=== PATIENT | male | born 1935 | race African-American/Black ===

== ENCOUNTER 2017-04-19 14:31 | Emergency (ER) | payer OTHER ==
[2017-04-19 14:40] VITALS: BMI 30.1
--- NOTE | 2017-04-19 15:17 | PDOC ---
History of Present Illness - General History Source: Patient - History of Present Illness Timing/Duration: reports: constant <Evelia Saucedo - Last Filed: 04/19/17 18:59> <Murtaza Grier - Last Filed: 04/19/17 21:10> - General Chief Complaint: Pain Stated Complaint: PAIN Time Seen by Provider: 04/19/17 14:59 Past History - Past Medical History Cancer: Yes (PROSTATE 2010) HTN: Yes Hypercholesterolemia: Yes - Immunization History Immunization Up to Date: Yes - Suicide/Smoking/Psychosocial Hx Smoking Status: Yes Smoking History: Never smoked Have you smoked in the past 12 months: No Number of Cigarettes Smoked Daily: 0 Cigars Per Day: 0 Hx Alcohol Use: Yes (SOCIAL) Drug/Substance Use Hx: No Substance Use Type: None Hx Substance Use Treatment: No <Evelia Saucedo - Last Filed: 04/19/17 18:59> <Murtaza Grier - Last Filed: 04/19/17 21:10> - Past Medical History Allergies/Adverse Reactions: Allergies Allergy/AdvReac Type Severity Reaction Status Date / Time No Known Allergies Allergy Verified 04/19/17 14:36 Home Medications: Ambulatory Orders Polyethylene Glycol 3350 [Miralax 255 gm Btl -] 17 gm PO PRN 10/29/12 Acetaminophen [Tylenol .Regular Strength -] 650 mg PO Q4H PRN #0 tablet Omeprazole [Prilosec] 20 mg PO ACBK #30 capsule. 01/18/16 Valsartan/Hydrochlorothiazide [Diovan Hct 160-25 mg Tablet] 1 combo PO DAILY # 30 tablet 01/18/16 Levofloxacin [Levaquin -] 500 mg PO DAILY #10 tablet 04/19/17 Tramadol HCl 50 mg PO Q8H PRN #12 tablet MDD 3 tabs 04/19/17 Review of Systems - Review of Systems Constitutional: No: Chills, Fever, Unintentional Wgt. Loss ABD/GI: No: Constipated, Nausea, Vomiting : Yes: Testicular Pain. No: Burning, Dysuria, Discharge, Flank Pain, Hematuria, Testicular Mass, Testicular Swelling <Evelia Saucedo Last Filed: 04/19/17 18:59> *Physical Exam - Vital Signs Last Vital Signs Temp Pulse Resp BP Pulse Ox 98.4 F 92 H 20 133/69 95 04/19/17 14:31 04/19/17 14:31 04/19/17 14:31 04/19/17 14:31 04/19/17 14:31 - Physical Exam General Appearance: Yes: Appropriately Dressed. No: Apparent Distress HEENT: positive: Normal Voice Neck: positive: Supple Respiratory/Chest: negative: Respiratory Distress Gastrointestinal/Abdominal: positive: Soft. negative: Tender Male Genitalia: positive: epididymus tender. negative: discharge, testicular mass ( ?swelling of L testes compared to right, no overt sign of hernia) Musculoskeletal: negative: CVA Tenderness Extremity: positive: Normal Inspection Integumentary: positive: Dry, Warm Neurologic: positive: Fully Oriented, Alert, Normal Mood/Affect <Evelia Saucedo - Last Filed: 04/19/17 18:59> - Vital Signs Last Vital Signs Temp Pulse Resp BP Pulse Ox 98.6 F 77 18 115/70 95 04/19/17 17:37 04/19/17 17:37 04/19/17 17:37 04/19/17 17:37 04/19/17 17:37 <Murtaza Grier - Last Filed: 04/19/17 21:10> ED Treatment Course - LABORATORY CBC & Chemistry Diagram: 04/19/17 15:05 04/19/17 15:05 - RADIOLOGY Radiology Studies Ordered: Category Date Time Status SCROTUM AND CONTENTS US [US] Stat Ultrasound 04/19/17 15:07 Ordered <Evelia Saucedo - Last Filed: 04/19/17 18:59> - LABORATORY CBC & Chemistry Diagram: 04/19/17 15:05 04/19/17 15:05 - ADDITIONAL ORDERS Additional order review: Laboratory Results 04/19/17 04/19/17 15:05 15:05 Sodium 139 Potassium 4.0 Chloride 100 Carbon Dioxide 32 Anion Gap 7 L BUN 16 Creatinine 1.3 Creat Clearance w eGFR 53.25 Random Glucose 109 H Calcium 9.1 Total Bilirubin 0.5 D AST 13 L D ALT 18 D Alkaline Phosphatase 55 Total Protein 7.2 Albumin 3.8 Urine Color Yellow Urine Appearance Slcloudy Urine pH 5.0 Ur Specific Bucks 1.020 Urine Protein Negative Urine Glucose (UA) Negative Urine Ketones Negative Urine Blood Negative Urine Nitrite Negative Urine Bilirubin Negative Urine Urobilinogen Negative Ur Leukocyte Esterase 1+ H Urine RBC 0-3 Urine WBC 30-50 Ur Epithelial Cells 0-3 Hyaline Casts 1-3 Urine Mucus 1+ 04/19/17 15:05 RBC 5.49 MCV 88.8 MCHC 32.4 RDW 14.8 MPV 8.0 Neutrophils % 67.3 Lymphocytes % 19.8 D Monocytes % 10.0 Eosinophils % 2.0 Basophils % 0.9 - Medications Given in the ED: ED Medications Discontinued Medications Generic Name Dose Route Start Last Admin Trade Name Freq PRN Reason Stop Dose Admin Tramadol HCl 50 mg 04/19/17 19:32 04/19/17 19:40 Ultram - PO 04/19/17 19:33 50 mg ONCE ONE Administration <Murtaza Grier - Last Filed: 04/19/17 21:10> Medical Decision Making - Medical Decision Making 04/19/17 15:08 Any 11-year-old male history of hypertension, diverticulosis, hemorrhoids, GIB, hyperlipidemia, prostate cancer, status post XRT presents to the ER with left testicular pain. Pain developed approximately 2 weeks ago, describes as achy and constant. Was seen by Dr. Michael of urology and after manually examining patient, prescribed him bactrim for "infection" as per patient and also started him on meloxicam. Patient states that he completed mededuardo, M.D., performed an ultrasound and told patient "everything looked fine". Patient states his symptoms had resolved until last night. Denies dysuria, frequency, hematuria, abdominal pain, acute change in bowel movements, nausea, vomiting, fever, chills , or recent unexplained weight loss See exam Recurrent L testicular pain No trauma Dx w/ "infection" 2 weeks ago after being examined by and completed bactrim Had negative US last week per pt Stable and in NAD w/ sig ttp to L testes and to superior pole Epipidydimitis vs hydrocele, unlikely torsion given duration, less likely UTI, no e/o hernia -pain control -labs -ua -US 04/19/17 15:18 04/19/17 18:54 Signed out to MAHIN Grier pending US read and c/s 04/19/17 18:59 <Namibian,Carine-Savita - Last Filed: 04/19/17 18:59> *DC/Admit/Observation/Transfer <Carine Saucedo-Savita - Last Filed: 04/19/17 18:59> - Discharge Dispostion Admit: No <Murtaza Grier - Last Filed: 04/19/17 21:10> Diagnosis at time of Disposition: Epididymitis - Discharge Dispostion Disposition: HOME Condition at time of disposition: Improved - Prescriptions Prescriptions: Levofloxacin [Levaquin -] 500 mg PO DAILY #10 tablet Tramadol HCl 50 mg PO Q8H PRN #12 tablet MDD 3 tabs PRN Reason: Severe Pain - Referrals Referrals: Gato Michael MD [Primary Care Provider] - Erin Michael MD [Staff Physician] - - Patient Instructions Printed Discharge Instructions: DI for Epididymitis Additional Instructions: Follow up with Erin Kwan (Urologist). Call to schedule appointment. Take medications as prescribed. Do not drive, drink alcohol, or operate heavy machinery while taking Tramadol. Return if symptoms worsen or any concerns for further evaluation. Print Language: GEORGIAN
[2017-04-19 15:32] LABS: BASOPHIL 0.9 % (0-2.0); MCH 28.8 pg (25.7-33.7); MCHC 32.4 g/dl (32.0-35.9); MEAN CELL VOLUME 88.8 fl (80-96); NEUTROPHILS 67.3 % (42.8-82.8); PLATELET COUNT 209 K/MM3 (134-434); RDW 14.8 % (11.9-15.9); WHITE BLOOD COUNT 6.4 K/mm3 (4.0-10.0)
[2017-04-19 15:33] LABS: URINE APPEARANCE SLCLOUDY; URINE BILIRUBIN NEGATIVE (NEGATIVE); URINE BLOOD NEGATIVE (NEGATIVE); URINE COLOR YELLOW; URINE GLUCOSE (UA) NEGATIVE (NEGATIVE); URINE KETONE NEGATIVE (NEGATIVE); URINE NITRITE NEGATIVE (NEGATIVE); URINE PROTEIN NEGATIVE (NEGATIVE); URINE UROBILINOGEN NEGATIVE mg/dL (0.2-1.0)
[2017-04-19 16:00] LABS: ALBUMIN 3.8 g/dl (3.4-5.0); ALK PHOS 55 U/L (45-117); ANION GAP 7 (8-16); BILIRUBIN,TOTAL 0.5 mg/dL (0.2-1.0); CALCIUM 9.1 mg/dL (8.5-10.1); CO2 32 mmol/L (21-32); CREATININE 1.3 mg/dL (0.7-1.3); GLUCOSE,RANDOM 109 mg/dL (74-106); SGOT/AST 13 U/L (15-37); SGPT/ALT 18 U/L (12-78); TOT PROT 7.2 g/dl (6.4-8.2)
[2017-04-19 17:55] LABS: URINE LEUK ESTERASE 1+ (NEGATIVE)
[2017-04-19] MEDS ORDERED: traMADol HCL 50 MG TABLET PO ONE (19:32)
[2017-04-19] MEDS ORDERED: traMADol HCL 50 MG TABLET ONE (19:37)
[2017-04-19 19:48] LABS: URINE MUCUS 1+; URINE RBC 0-3 /hpf (0-3); URINE WBC 30-50 (3-5)
[2017-04-19] MEDS ORDERED: LEVOFLOXACIN 500 MG TABLET (FP) PO ONE (21:04)
[2017-04-19 21:07] VITALS: BP 120/68; PULSE 80; TEMP 98.4
[2017-04-19] MEDS ORDERED: LEVOFLOXACIN 500 MG TABLET (FP) ONE (21:18)
== END 2017-04-19 21:25 | disposition home or self-care (01) ==
LOC: JER 14:31
DX: N45.1 Epididymitis (principal); I10 Essential (primary) hypertension; Z85.46 Personal history of malignant neoplasm of prostate
CPT/HCPCS: 36415; 76870-TC; 80053; 81003; 81015; 85025; 87086; 99282-25

== ENCOUNTER 2018-10-10 12:16 | Emergency (ER) | payer OTHER ==
[2018-10-10 12:21] VITALS: BP 127/51; PULSE 86; TEMP 98.2; BMI 30.5
--- NOTE | 2018-10-10 13:13 | PDOC ---
History of Present Illness - General Chief Complaint: Eye Problem Stated Complaint: EYE SWELLING / AGITATION Time Seen by Provider: 10/10/18 12:42 - History of Present Illness Initial Comments: 10/10/18 13:12 82-year-old male with a past medical history for hypertension presents for evaluation of bilateral eye irritation 2 weeks. Seen by ophthalmology placed on an antibiotic eyedrop he has got no relief. He complains of itching and sneezing without systemic symptoms Past History - Past Medical History Allergies/Adverse Reactions: Allergies Allergy/AdvReac Type Severity Reaction Status Date / Time No Known Allergies Allergy Verified 10/10/18 12:22 Home Medications: Ambulatory Orders Polyethylene Glycol 3350 [Miralax 255 gm Btl -] 17 gm PO PRN 10/29/12 Acetaminophen [Tylenol .Regular Strength -] 650 mg PO Q4H PRN #0 tablet Omeprazole [Prilosec] 20 mg PO ACBK #30 capsule. 01/18/16 Valsartan/Hydrochlorothiazide [Diovan Hct 160-25 mg Tablet] 1 combo PO DAILY # 30 tablet 01/18/16 Tramadol HCl 50 mg PO Q8H PRN #12 tablet MDD 3 tabs 04/19/17 levoFLOXacin [Levaquin -] 500 mg PO DAILY #10 tablet 04/19/17 Olopatadine HCl [Pataday] 1 drop OU DAILY #1 bottle 10/10/18 Cancer: Yes (PROSTATE 2010) COPD: No HTN: Yes Hypercholesterolemia: Yes - Immunization History Immunization Up to Date: Yes - Suicide/Smoking/Psychosocial Hx Smoking Status: Yes Smoking History: Never smoked Have you smoked in the past 12 months: No Number of Cigarettes Smoked Daily: 0 Cigars Per Day: 0 Hx Alcohol Use: (occasionally) Drug/Substance Use Hx: No Substance Use Type: None Hx Substance Use Treatment: No Review of Systems - Review of Systems Constitutional: No: Fever HEENTM: Yes: Tearing. No: Eye Pain, Blurred Vision, Recent change in vision, Double Vision, Cataracts *Physical Exam - Vital Signs Last Vital Signs Temp Pulse Resp BP Pulse Ox 98.2 F 86 18 127/51 L 94 L 10/10/18 12:17 10/10/18 12:17 10/10/18 12:17 10/10/18 12:17 10/10/18 12:17 - Physical Exam Comments: 10/10/18 13:12 HEAD: NC/AT EYES: Conjuntiva erythemic. EOMI PERRL MS: Full ROM in all joints without edema NEUROLOGIC: No gross sensory or motor deficits, NVID SKIN: Normal color and temperature no lesions or rashes Medical Decision Making - Medical Decision Making 10/10/18 13:13 ALLERGIC conjunctivitis I will treat him with Pataday eyedrops have him follow- up with ophthalmology on Friday. *DC/Admit/Observation/Transfer Diagnosis at time of Disposition: Allergic conjunctivitis - Discharge Dispostion Disposition: HOME Condition at time of disposition: Stable Decision to Admit order: No - Referrals Referrals: Gato Michael MD [Primary Care Provider] - Tha York MD [Staff Physician] - - Patient Instructions Printed Discharge Instructions: Conjunctivitis, DI for Conjunctivitis Additional Instructions: Return to the emergency room for worsening symptoms. Please follow-up with her director of surgery in 2 days for further evaluation and treatment options without fail. Please use the antihistamine eyedrops as directed one drop each eye daily - Post Discharge Activity
== END 2018-10-10 13:15 | disposition home or self-care (01) ==
LOC: JERFT 12:16
DX: H10.13 Acute atopic conjunctivitis, bilateral (principal); I10 Essential (primary) hypertension; E78.00 Pure hypercholesterolemia, unspecified; Z85.46 Personal history of malignant neoplasm of prostate
CPT/HCPCS: 99281-25

== ENCOUNTER 2019-02-20 14:54 | Inpatient (IN) | payer OTHER ==
--- NOTE | 2019-02-20 16:03 | PDOC ---
History of Present Illness - General Chief Complaint: Respiratory Stated Complaint: DIZZNESS/COUGH Time Seen by Provider: 02/20/19 16:02 Past History - Past Medical History Allergies/Adverse Reactions: Allergies Allergy/AdvReac Type Severity Reaction Status Date / Time No Known Allergies Allergy Verified 02/20/19 15:00 Home Medications: Ambulatory Orders Polyethylene Glycol 3350 [Miralax 255 gm Btl -] 17 gm PO PRN 10/29/12 Acetaminophen [Tylenol .Regular Strength -] 650 mg PO Q4H PRN #0 tablet Omeprazole [Prilosec] 20 mg PO ACBK #30 capsule. 01/18/16 Valsartan/Hydrochlorothiazide [Diovan Hct 160-25 mg Tablet] 1 combo PO DAILY # 30 tablet 01/18/16 Tramadol HCl 50 mg PO Q8H PRN #12 tablet MDD 3 tabs 04/19/17 Olopatadine HCl [Pataday] 1 drop OU DAILY #1 bottle 10/10/18 Cancer: Yes (PROSTATE 2010) COPD: No HTN: Yes Hypercholesterolemia: Yes - Immunization History Immunization Up to Date: Yes - Suicide/Smoking/Psychosocial Hx Smoking Status: Yes Smoking History: Never smoked Have you smoked in the past 12 months: No Number of Cigarettes Smoked Daily: 0 Cigars Per Day: 0 Hx Alcohol Use: (occasionally) Drug/Substance Use Hx: No Substance Use Type: None Hx Substance Use Treatment: No *Physical Exam - Vital Signs Last Vital Signs Temp Pulse Resp BP Pulse Ox 100.0 F H 90 18 132/57 L 94 L 02/20/19 14:58 02/20/19 14:58 02/20/19 14:58 02/20/19 14:58 02/20/19 14:58 ED Treatment Course - LABORATORY CBC & Chemistry Diagram: 02/20/19 17:50 02/20/19 17:50 Medical Decision Making - Medical Decision Making 02/20/19 19:57 83 y/o M with hx HTN, HLD p/w two days of ongoing cough, sore throat, dizziness (now resolved). Borderline temperature 100.0 likely represents true fever if oral temp, initial O2% of 94%. Given age, risk factors, plan for CXR, bloodwork to evaluate for pneumonia vs other pulmonary process. Plan: CBC CMP CXR EKG Trop Dispo: Likely home ---- CXR notable for consolidation on lateral view O2% reassessed - 91% on RA. With ambulation O2 decreased to 86%. No hx COPD, no known existing O2 requirement at baseline Plan for admission for pneumonia, new O2 requirement. Azithromycin, ceftriaxone ordered *DC/Admit/Observation/Transfer Diagnosis at time of Disposition: Hypoxemia requiring supplemental oxygen Pneumonia Qualifiers: Pneumonia type: due to unspecified organism Laterality: unspecified laterality Lung location: unspecified part of lung Qualified Code(s): J18.9 - Pneumonia, unspecified organism - Discharge Dispostion Decision to Admit order: Yes - Referrals Referrals: Gato Michael MD [Primary Care Provider] - - Patient Instructions - Post Discharge Activity
--- NOTE | 2019-02-20 18:13 | PDOC ---
Documentation entered by Emil Cifuentes SCRIBE, acting as scribe for Maynor Choi MD. Maynor Choi MD: This documentation has been prepared by the Esau ruiz Daniel, SCRIBE, under my direction and personally reviewed by me in its entirety. I confirm that the documentation accurately reflects all work, treatment, procedures, and medical decision making performed by me. Attending Attestation - Resident Resident Name: RosalbaGrzegorz - ED Attending Attestation I have performed the following: I have examined & evaluated the patient, The case was reviewed & discussed with the resident, I agree w/resident's findings & plan, Exceptions are as noted - HPI HPI: 02/20/19 17:28 The patient is an 83 year old male with a past medical history of HTN, HLD, diverticulosis, prostate cancer, and hemorrhoids here today for evaluation of concerns of pneumonia. The patient reports that he had 2 days of a productive cough of initially of clear phlegm, but phlegm has become yellow over the last 24hrs. He reports associated sore throat, runny nose for 2 days and lightheadedness earlier today when he stood up in the morning. He denies lightheadedness now, states it occurred when he got out of bed only. He notes that he has had walking pneumonia in the past and is concerned that he has it again. Denies fevers at home, but states "my temperature here was 100." Denies associated CP, SOB, diaphoresis, headache, weakness. Denies sick contacts or recent travel. Patient denies lightheadedness. Denies nausea, vomiting, diarrhea, abdominal pain. Denies rashes, urinary sxs. Allergies: NKA PCP: Gato Michael - Physicial Exam PE: 02/20/19 17:28 GENERAL: Awake, alert, and fully oriented, in no acute distress. Well appearing and very pleasant. EYES: PERRLA, EOMI, sclera anicteric, conjunctiva clear ENT: Auricles normal inspection, hearing grossly normal, nares patent, oropharynx clear without exudates. Mild posterior OP erythema. Moist mucosa NECK: Normal ROM, supple, no lymphadenopathy, JVD, or masses LUNGS: Breath sounds equal, clear to auscultation bilaterally. No wheezes, and no crackles HEART: Regular rate and rhythm, normal S1 and S2, no murmurs, rubs or gallops ABDOMEN: Soft, nontender, normoactive bowel sounds. No guarding, no rebound. No masses EXTREMITIES: Normal range of motion, no edema. No clubbing or cyanosis. No cords , erythema, or tenderness BACK: No midline spinal tenderness in cervical/thoracic/lumbar region NEUROLOGICAL: Normal speech, cranial nerves intact, equal strength and sensation b/l SKIN: Warm, Dry, normal turgor, no rashes or lesions noted. - Medical Decision Making 02/20/19 18:04 83yo M hx HTN, HL prsents to the ED with 2 days of productive cough, sore throat , rhinorrohea and transient lightheadedness when he stood up this morning. Vitals with oral temp 100, likely febrile and mild hypoxia to 94%. Normal RR. Orthostatics negative. Exam with well appearing, non toxic pt in no respiratory distress DDx includes PNA vs bronchitis vs URI Low likelihood ACS or PE as no CP or SOB, but will check troponin given transient lightheadedness EKG unchanged compared to EKG from 2016 Plan for labs, CXR, reassess 02/20/19 19:00 Labs wnl, no leukocytosis. CXR with possible retrocardiac opacity? At this time, O2 sat repeated was 91% at rest, desatting to 85% with ambulation Pt has no hx COPD Plan to treat with ceftiaxone, azithro, admit for CAP Heart Score/ECG Review #1 02/20/19 18:13 EKG read and interpreted by me: NSRm rate 86. Normal axis. No ISIDORO. TW flattening inferiorly. Compared to EKG from 01/17/16, no sig changes
[2019-02-20 18:25] LABS: BASO % 0.4 % (0-2.0); EOS % 0.5 % (0-4.5); HEMATOCRIT 46.2 % (35.4-49); HEMOGLOBIN 15.3 GM/dL (11.7-16.9); LYMPH % 10.5 % (8-40); MCH 29.8 pg (25.7-33.7); MCHC 33.1 g/dl (32.0-35.9); MEAN CELL VOLUME 90.1 fl (80-96); MEAN PLT VOLUME 8.6 fl (7.5-11.1); MONO % 7.8 % (3.8-10.2); NEUT % 80.8 % (42.8-82.8); PLATELET COUNT 202 K/MM3 (134-434); RBC 5.13 M/mm3 (4.00-5.60); RDW 14.3 % (11.9-15.9)
[2019-02-20 18:46] LABS: ALBUMIN 3.4 g/dl (3.4-5.0); ALK PHOS 52 U/L (45-117); ANION GAP 6 MMOL/L (8-16); BILIRUBIN,TOTAL 0.8 mg/dL (0.2-1); BLOOD UREA NITROGEN 11.9 mg/dL (7-18); CALCIUM 8.6 mg/dL (8.5-10.1); CHLORIDE 102 mmol/L (98-107); CO2 33 mmol/L (21-32); CREATININE 1.3 mg/dL (0.55-1.3); GLUCOSE,RANDOM 94 mg/dL (74-106); POTASSIUM 4.1 mmol/L (3.5-5.1); SGOT/AST 17 U/L (15-37); SGPT/ALT 21 U/L (13-61); SODIUM 140 mmol/L (136-145); TOT PROT 6.3 g/dl (6.4-8.2)
[2019-02-20] MEDS ORDERED: ACETAMINOPHEN 500 MG TABLET (FP) PO ONE (19:10)
[2019-02-20] MEDS ORDERED: AZITHROMYCIN IVPB 500 MG in DEXTROSE 5%-WATER - 250 ML IVPB ONE (19:55)
[2019-02-20] MEDS ORDERED: AZITHROMYCIN IVPB 500 MG/250 ML BAG IVPB ONE ×2 (20:52)
[2019-02-20] MEDS ORDERED: CEFTRIAXONE 1 GM in DEXTROSE 5%-WATER - 50 ML IVPB SCH (21:45)
[2019-02-20] MEDS: SODIUM CHLORIDE 1,000 ML IV SCH (22:50)
--- NOTE | 2019-02-20 22:55 | HP ---
CHIEF COMPLAINT: cough PCP: Gato Michael HISTORY OF PRESENT ILLNESS: Patient is an 83 yo M with a PMHx of HTN, HLD, prostate ca (2011 tx w/ radiation ), presenting to the ED because of productive cough w yellow sputum production over the last 2 days. Says he felt warm at the house and had a 100 temp. He says he felt as if he had the flu. He had a sore throat (which is now better), with a runny nose (also better). He also says his cough is better than before and has been dry today. He also mentions having some lightheadedness this morning when getting up from a seated position. He currently denies sob, chest pain, mcclendon, orthopnea, nausea, vomiting, chills, fevers, diarrhea, allergies, sick contacts ER course was notable for: (1) Hypoxic to 86% with ambulation, 100 temp in ER (2) ER signout with infiltrate on their prelim read on lateral view. (3) Ceftriaxone/azithro PAST MEDICAL HISTORY: per HPI Social History: Smoking: denies. quit @67 years old Alcohol: denies Drugs: denies Family History: Allergies No Known Allergies Allergy (Verified 02/20/19 15:00) HOME MEDICATIONS: Home Medications Medication Instructions Recorded Polyethylene Glycol 3350 [Miralax 17 gm PO PRN 10/29/12 255 gm Btl -] Acetaminophen [Tylenol .Regular 650 mg PO Q4H PRN #0 tablet 01/18/16 Strength -] Omeprazole [Prilosec] 20 mg PO ACBK #30 capsule. 01/18/16 Valsartan/Hydrochlorothiazide 1 combo PO DAILY #30 tablet 01/18/16 [Diovan Hct 160-25 mg Tablet] Tramadol HCl 50 mg PO Q8H PRN #12 tablet MDD 3 04/19/17 tabs Olopatadine HCl [Pataday] 1 drop OU DAILY #1 bottle 10/10/18 REVIEW OF SYSTEMS CONSTITUTIONAL: fevers, weakness Absent: chills, diaphoresis, malaise, loss of appetite, weight change HEENT: Absent: rhinorrhea, nasal congestion, throat pain, throat swelling, difficulty swallowing, mouth swelling, ear pain, eye pain, visual changes CARDIOVASCULAR: lightheadedness Absent: chest pain, syncope, palpitations, irregular heart rate, peripheral edema RESPIRATORY: cough Absent:shortness of breath, dyspnea with exertion, orthopnea, wheezing, stridor , hemoptysis GASTROINTESTINAL: Absent: abdominal pain, abdominal distension, nausea, vomiting, diarrhea, constipation, melena, hematochezia GENITOURINARY: Absent: dysuria, frequency, urgency, hesitancy, hematuria, flank pain, genital pain MUSCULOSKELETAL: Absent: myalgia, arthralgia, joint swelling, back pain, neck pain SKIN: Absent: rash, itching, pallor PHYSICAL EXAMINATION Vital Signs - 24 hr 02/20/19 02/20/19 14:58 20:04 Temperature 100.0 F H Pulse Rate 90 Pulse Rate [ 84 Left] Respiratory 18 20 Rate Blood Pressure 132/57 L Blood Pressure 125/76 [Right] O2 Sat by Pulse 94 L 96 Oximetry (%) GENERAL: Awake, alert, and fully oriented, in no acute distress. HEAD: Normal with no signs of trauma. EYES: Pupils equal, round and reactive to light, injected conjunctiva EARS, NOSE, THROAT: oropharynx clear without exudates. Moist mucous membranes. NECK: supple without lymphadenopathy, JVD, or masses. LUNGS: Breath sounds equal, clear to auscultation bilaterally. No wheezes, and no crackles. HEART: Regular rate and rhythm, normal S1 and S2 without murmur, rub or gallop. ABDOMEN: Soft, nontender, not distended, normoactive bowel sounds LOWER EXTREMITIES: 2+ pulses, warm, well-perfused. No calf tenderness. No peripheral edema. NEUROLOGICAL: Cranial nerves II-XII intact Laboratory Results - last 24 hr 02/20/19 02/20/19 17:50 17:50 WBC 9.0 RBC 5.13 Hgb 15.3 Hct 46.2 MCV 90.1 MCH 29.8 MCHC 33.1 RDW 14.3 Plt Count 202 MPV 8.6 Absolute Neuts (auto) 7.2 Neutrophils % 80.8 D Lymphocytes % 10.5 D Monocytes % 7.8 Eosinophils % 0.5 Basophils % 0.4 Nucleated RBC % 0 Sodium 140 Potassium 4.1 Chloride 102 Carbon Dioxide 33 H Anion Gap 6 L BUN 11.9 Creatinine 1.3 Est GFR (CKD-EPI)AfAm 59.31 Est GFR (CKD-EPI)NonAf 51.17 Random Glucose 94 Calcium 8.6 Total Bilirubin 0.8 AST 17 ALT 21 Alkaline Phosphatase 52 Troponin I < 0.02 Total Protein 6.3 L Albumin 3.4 ASSESSMENT/PLAN: 83 yo M with a PMHx of HTN, HLD, prostate ca (2010 tx w/ radiation), presenting to the ED because of productive cough w yellow sputum production for 2 days. #CAP -Per ER, their prelim read reveals infiltrate on Lateral view CXR -await official read -Will order CT chest -IV abx: Ceftriaxone, Azithromycin -Iv fluids -sputum cultures -legionella -O2 as needed. currently 98@ on 2L o2 #FEN -IV fluids NS @ 50ml/hour #DVT ppx -hep sq ATTENDING PHYSICIAN STATEMENT I saw and evaluated the patient. I reviewed the resident's note and discussed the case with the resident. I agree with the resident's findings and plan as documented. SUBJECTIVE: OBJECTIVE: ASSESSMENT AND PLAN:
--- NOTE | 2019-02-20 22:57 | PN ---
Teaching Attending Note Name of Resident: Lewis Gomez ATTENDING PHYSICIAN STATEMENT I saw and evaluated the patient. I reviewed the resident's note and discussed the case with the resident. I agree with the resident's findings and plan as documented. Seen and examined; please see resident note for further historical information. Briefly, this is a 83 y/o male with a PMH as documented presenting to the ER with cough; noted to be hypoxic per ER. Susupected PNA; CT negative for pneumonia. Does have cough and sore throat. Negative BNP. VS, labs, imaging reviewed NAD, AAO, resting comfortably in bed NC AT EOMI PERRLA RRR s1/2 Lungs mostly clear; w/ sym exp NT ND +BS CN2-12 wnl, no fnd Normal mood, appropriate behavior EKG reviewed CXR reviewed; CT pending ASSESSMENT AND PLAN: Patient presents with fever and cough; CT negative for pneumonia # Fever -Resolved with abx; identify source. Consider strep Ag # Suspected Hypoxia -Documented in ER but no documented in vitals; described in ER note with ambulation. Will do a pre and post with RT. Was placed on O2 at 96% which does not need O2. Wean off O2 and observe. HTN, HLD, diverticulosis, prostate cancer, and hemorrhoids chronic; observe
[2019-02-20] MEDS ORDERED: traMADol HCL 50 MG TABLET PO PRN (22:58)
[2019-02-20] MEDS ORDERED: CEFTRIAXONE 1 GM/50 ML BAG ONE (23:08)
[2019-02-21 04:42] VITALS: BMI 28.4
[2019-02-21] MEDS: HEPARIN NA (PORCINE) 5,000 UNITS/ML 1ML VIAL SQ SCH ×3 (05:55→21:18)
[2019-02-21] MEDS: SODIUM CHLORIDE 1,000 ML IV SCH (05:55)
[2019-02-21] MEDS ORDERED: PATIENT'S OWN MEDICATION (NON-FORMULARY) (Valsartan/Hydrochlorothiazide [Diovan Hct 160-25 PO SCH (10:00)
[2019-02-21] MEDS ORDERED: PATIENT'S OWN MEDICATION (NON-FORMULARY) (Olopatadine Hcl [Pataday] 1 DROP) OU SCH (10:00)
[2019-02-21] MEDS ORDERED: AZITHROMYCIN IVPB 250 MG in DEXTROSE 5%-WATER - 250 ML IVPB SCH (10:00)
[2019-02-21 10:22] LABS: HEMATOCRIT 47.7 % (35.4-49); HEMOGLOBIN 15.4 GM/dL (11.7-16.9); MCH 29.5 pg (25.7-33.7); MCHC 32.4 g/dl (32.0-35.9); MEAN PLT VOLUME 8.6 fl (7.5-11.1); PLATELET COUNT 175 K/MM3 (134-434); RBC 5.24 M/mm3 (4.00-5.60); RDW 14.5 % (11.9-15.9); WHITE BLOOD COUNT 7.2 K/mm3 (4.0-10.0)
[2019-02-21 10:28] LABS: ALBUMIN 3.2 g/dl (3.4-5.0); BILIRUBIN,TOTAL 0.8 mg/dL (0.2-1); BLOOD UREA NITROGEN 12.6 mg/dL (7-18); CALCIUM 8.4 mg/dL (8.5-10.1); CREATININE 1.2 mg/dL (0.55-1.3); TOT PROT 6.3 g/dl (6.4-8.2)
--- NOTE | 2019-02-21 10:46 | PN ---
Progress Note (short form) - Note Progress Note: Subjective: no cp or SOB , no CROWDER , no sore throat. NO abd pain or diarrhea. HE reprots runny nose and sore throat since . cough with yellow and clear spurum at home ( sputum in cup is clear ) Objective: Vital Signs: Last Vital Signs Temp Pulse Resp BP Pulse Ox 98.9 F 72 20 114/55 L 96 02/21/19 04:40 02/21/19 04:40 02/21/19 04:40 02/21/19 04:40 02/21/19 04:31 Laboratory Results - last 24 hr 02/20/19 02/20/19 02/21/19 17:50 17:50 02:00 WBC 9.0 RBC 5.13 Hgb 15.3 Hct 46.2 MCV 90.1 MCH 29.8 MCHC 33.1 RDW 14.3 Plt Count 202 MPV 8.6 Absolute Neuts (auto) 7.2 Neutrophils % 80.8 D Lymphocytes % 10.5 D Monocytes % 7.8 Eosinophils % 0.5 Basophils % 0.4 Nucleated RBC % 0 Sodium 140 Potassium 4.1 Chloride 102 Carbon Dioxide 33 H Anion Gap 6 L BUN 11.9 Creatinine 1.3 Est GFR (CKD-EPI)AfAm 59.31 Est GFR (CKD-EPI)NonAf 51.17 Random Glucose 94 Calcium 8.6 Total Bilirubin 0.8 AST 17 ALT 21 Alkaline Phosphatase 52 Troponin I < 0.02 B-Natriuretic Peptide 147.8 Total Protein 6.3 L Albumin 3.4 02/21/19 02/21/19 08:49 08:49 WBC 7.2 RBC 5.24 Hgb 15.4 Hct 47.7 MCV 91.0 MCH 29.5 MCHC 32.4 RDW 14.5 Plt Count 175 MPV 8.6 Absolute Neuts (auto) Neutrophils % Lymphocytes % Monocytes % Eosinophils % Basophils % Nucleated RBC % Sodium 139 Potassium 4.0 Chloride 107 Carbon Dioxide 26 Anion Gap 6 L BUN 12.6 Creatinine 1.2 Est GFR (CKD-EPI)AfAm 65.33 Est GFR (CKD-EPI)NonAf 56.37 Random Glucose 169 H Calcium 8.4 L Total Bilirubin 0.8 AST 28 ALT 24 Alkaline Phosphatase 50 Troponin I B-Natriuretic Peptide Total Protein 6.3 L Albumin 3.2 L Physical Exam: NAD , AAOx3 HEENT: No lymphadenopathy in neck, NL oropharynx, no thrush, unicteric scleara, no facial droop. CV: RRR, no MRG Lungs: CTAB Ext : NO edema no erythema skin no rash Abd:soft, NT, ND, NL BS Assessment/Plan: Pleasant 83 y/o man with h/o HTN, HLP, diverticulosis, hemorrhoids and prostate cancer who presented with fever . 1- FEver: suspect viral illness causing URI and possible bronchitis. CT images reviewed, no infltrate. report pending No source of infection on exam. No murmurs or any skin lesions - strep swab ordered - order blood cx - hold off any ABx with no source 2- Reported hypoxia but no documentation of it. no SOB or any CT findings - will dc o2 and monitor sats 3- HTN: cont Diovan 4- Meds were confirmed with him Possible dc tomorrow if no recurrence of fever or new findings Visit type - Emergency Visit Emergency Visit: Yes ED Registration Date: 02/20/19 Care time: The patient presented to the Emergency Department on the above date and was hospitalized for further evaluation of their emergent condition. - New Patient This patient is new to me today: Yes Date on this admission: 02/21/19 - Critical Care Critical Care patient: No
[2019-02-21] MEDS ORDERED: PT OWN MED DRAWER 7, Y5N ONE ×2 (10:57→12:23)
[2019-02-21] MEDS: VALSARTAN 160 MG TABLET (UD) PO SCH (11:00)
[2019-02-21] MEDS: HYDROCHLOROTHIAZIDE 25 MG TABLET (FP) PO SCH (11:00)
--- NOTE | 2019-02-21 11:31 | EKG ---
Test Reason : Blood Pressure : / mmHG Vent. Rate : 086 BPM Atrial Rate : 086 BPM P-R Int : 124 ms QRS Dur : 070 ms QT Int : 300 ms P-R-T Axes : 070 060 014 degrees QTc Int : 359 ms NORMAL SINUS RHYTHM NONSPECIFIC T WAVE ABNORMALITY ABNORMAL ECG WHEN COMPARED WITH ECG OF 17-JAN-2016 20:11, NO SIGNIFICANT CHANGE WAS FOUND Confirmed by DIANA GONSALEZ, THOMAS ([id number]) on 02/21/2019 11:31:10 AM Referred By: Confirmed By:THOMAS ORTIZ MD
[2019-02-22] MEDS: SODIUM CHLORIDE 1,000 ML IV SCH (05:12)
[2019-02-22] MEDS: HEPARIN NA (PORCINE) 5,000 UNITS/ML 1ML VIAL SQ SCH ×2 (05:14→14:01)
[2019-02-22 07:55] LABS: EOS % 6.8 % (0-4.5); HEMATOCRIT 43.6 % (35.4-49); HEMOGLOBIN 14.2 GM/dL (11.7-16.9); LYMPH % 25.8 % (8-40); MCH 29.3 pg (25.7-33.7); MCHC 32.7 g/dl (32.0-35.9); MEAN CELL VOLUME 89.9 fl (80-96); MEAN PLT VOLUME 8.6 fl (7.5-11.1); MONO % 18.3 % (3.8-10.2); NEUT % 48.1 % (42.8-82.8); PLATELET COUNT 187 K/MM3 (134-434); RBC 4.86 M/mm3 (4.00-5.60); RDW 14.2 % (11.9-15.9); WHITE BLOOD COUNT 4.5 K/mm3 (4.0-10.0)
[2019-02-22] MEDS: VALSARTAN 160 MG TABLET (UD) PO SCH (11:16)
[2019-02-22] MEDS: HYDROCHLOROTHIAZIDE 25 MG TABLET (FP) PO SCH (11:16)
[2019-02-22 11:34] VITALS: BP 131/65; PULSE 82; TEMP 98
--- NOTE | 2019-02-22 12:38 | PN ---
Teaching Attending Note Name of Resident: Jane Roberts ATTENDING PHYSICIAN STATEMENT I saw and evaluated the patient. I reviewed the resident's note and discussed the case with the resident. I agree with the resident's findings and plan as documented. SUBJECTIVE: No fever or chills . No pain , cont to have intermittent cough. slightly yellow sputum production OBJECTIVE: NAD , AAOx3 HEENT: MMM CV: RRR, no MRG Lungs: CTAB Ext : NO edema no erythema Assessment/Plan: Pleasant 83 y/o man with h/o HTN, HLP, diverticulosis, hemorrhoids and prostate cancer who presented with fever . 1- Fever: due to viral UTI. did nto recur. . w/u neg tot date blood cx reviewed Neg x 24 hr - strep swab neg . Cx neg - sputum G stain with amador, cx pending - no Abx treatment - f/u with PCP , if fever recurs, he will need further w/u - No hypoxia, O2 sat Nl on RA 2- HTN: cont Diovan dc home . f/u with PCP
--- NOTE | 2019-02-22 20:28 | DS ---
Physical Exam: SUBJECTIVE: Patient seen and examined at the bedside, there were no acute events overnight. Patient reports his symptoms are improving. OBJECTIVE: Vital Signs Period Temp Pulse Resp BP Sys/Cifuentes Pulse Ox Last 24 Hr 98 F-98.8 F 67-82 18-20 108-133/65-73 98 PHYSICAL EXAM GENERAL: The patient is awake, alert, and fully oriented, in no acute distress. HEAD: Normal with no signs of trauma. EYES: PERRL, extraocular movements intact, sclera anicteric, conjunctiva clear. ENT: Ears normal, nares patent, oropharynx clear without exudates, moist mucous membranes. NECK: Trachea midline, supple. LUNGS: Breath sounds equal, wheezing bilaterally in lower lung freed, no crackles, no accessory muscle use. HEART: Regular rate and rhythm, S1, S2 without murmurs ABDOMEN: Soft, nontender, nondistended, normoactive bowel sounds, no guarding. EXTREMITIES: 2+ pulses, warm, well-perfused, no edema. NEUROLOGICAL: Cranial nerves II through XII grossly intact. Normal speech, gait not observed. PSYCH: Normal mood, normal affect. SKIN: Warm, dry, normal turgor, no rashes or lesions noted. LABS Laboratory Results - last 24 hr 02/22/19 06:55 WBC 4.5 RBC 4.86 Hgb 14.2 Hct 43.6 MCV 89.9 MCH 29.3 MCHC 32.7 RDW 14.2 Plt Count 187 MPV 8.6 Absolute Neuts (auto) 2.2 Neutrophils % 48.1 D Lymphocytes % 25.8 D Monocytes % 18.3 H D Eosinophils % 6.8 H D Basophils % 1.0 Nucleated RBC % 0 HOSPITAL COURSE: Date of Admission:02/20/19 Patient is an 83 yo M with a PMHx of HTN, HLD, prostate ca (2010 tx w/ radiation ), presenting to the ED because of productive cough w yellow sputum production over the last 2 days in addition to lightheadedness when getting up from a seated position. Patient denied sob, chest pain, mcclendon, orthopnea, nausea, vomiting, chills, fevers, diarrhea, allergies, sick contacts. In the ED it was noted that the patient was hypoxic to 86% with ambulation, 100 temp in ER. Patient was admitted for w/u of possible PNA. CXR, and chest CT did not reveal any acute lung pathology. Blood, urine, and sputum cultures were all negative. Urine strep pneumo and legionella were both negative. On the floors patient was placed on 2LNC, IVF, and started on ceftriaxone and azithromycin. The patient did well over the weekend and following a largely negative workup it was determined that the most likely cause of his symptoms was a URI. This morning the patient was satting 95% on RA and antibiotics were D/C'd since cultures remained negative. Patient was deemed medically stable for discharge home. Date of Discharge: 02/22/19 Minutes to complete discharge: 40 Discharge Summary Reason For Visit: HYPOXEMIA REQUIRING SUPPLEMENTAL OXYGEN PNEUMONIA Condition: Improved - Instructions Diet, Activity, Other Instructions: You came to the emergency room with complaints of cough/cold/congestion and fevers. We suspect that this was likely due to a viral illness; No need fro Abx Please resume all of your home medications Please follow up with Dr. Michael within a few days *if you begin to experience worsening fevers, chills, cough chest pains, please return to the emergency room immediately Referrals: Gato Michael MD [Primary Care Provider] - 1 Week Disposition: HOME - Home Medications Comprehensive Discharge Medication List: Ambulatory Orders Polyethylene Glycol 3350 [Miralax 255 gm Btl -] 17 gm PO PRN 10/29/12 Valsartan/Hydrochlorothiazide [Diovan Hct 160-25 mg Tablet] 1 combo PO DAILY # 30 tablet 01/18/16 Aspirin [Ecotrin] 81 mg PO DAILY 02/21/19 Atorvastatin Ca [Lipitor] 1 tab PO DAILY 02/21/19 Telmisartan/Hydrochlorothiazid [Telmisartan-Hctz 80-12.5 mg Tb] 1 each PO DAILY 02/22/19 This patient is new to me today: Yes Date on this admission: 02/22/19 Emergency Visit: Yes ED Registration Date: 02/20/19 Care time: The patient presented to the Emergency Department on the above date and was hospitalized for further evaluation of their emergent condition. Critical Care patient: No - Discharge Referral Referred to [facility] Med [facility] No ATTENDING PHYSICIAN STATEMENT I saw and evaluated the patient. I reviewed the resident's note and discussed the case with the resident. I agree with the resident's findings and plan as documented. SUBJECTIVE: OBJECTIVE: ASSESSMENT AND PLAN:
== END 2019-02-22 14:12 | disposition home or self-care (01) | DRG 153 ==
LOC: JER 14:54 → JERBED 19:52 → J5S 02-21 02:56
PROVIDERS: ADMIT Internal Medicine; ATTEND Internal Medicine
DX: J06.9 Acute upper respiratory infection, unspecified (principal); R09.02 Hypoxemia; Z85.46 Personal history of malignant neoplasm of prostate; I10 Essential (primary) hypertension; E78.5 Hyperlipidemia, unspecified; K57.30 Diverticulosis of large intestine without perforation or abscess without bleeding; Z87.891 Personal history of nicotine dependence
CPT/HCPCS: 36415; 71046-TC-FY; 71250-TC; 80053; 83880; 84484; 85025; 85027; 87040; 87070; 87205; 87880; 87899; 93005; 93010; 94761; 99285-25; J1644; J7030

== ENCOUNTER 2021-09-05 08:00 | Emergency (ER) | payer OTHER ==
[2021-09-05 08:17] VITALS: BP 126/67; PULSE 77; TEMP 98; BMI 34.5
[2021-09-05] MEDS ORDERED: traMADol HCL 50 MG TABLET PO ONE (08:41)
[2021-09-05] MEDS ORDERED: ACETAMINOPHEN 500 MG TABLET (FP) PO ONE (08:41)
[2021-09-05] MEDS ORDERED: ACETAMINOPHEN 500 MG TABLET (FP) ONE (09:43)
[2021-09-05] MEDS ORDERED: traMADol HCL 50 MG TABLET ONE ×2 (09:43→09:50)
== END 2021-09-05 11:15 | disposition home or self-care (01) ==
LOC: JER 08:00
DX: M54.50 Low back pain, unspecified (principal)
CPT/HCPCS: 72131-TC; 99284-25

== ENCOUNTER 2023-10-31 04:32 | Day surgery (SDC) | payer OTHER ==
[2023-10-29 10:24] VITALS: BMI 25.6
[2023-10-31 08:26] VITALS: RESP 20; TEMP 97.5
[2023-10-31 08:51] VITALS: BP 110/54; PULSE 58
== END 2023-10-31 08:51 | disposition home or self-care (01) ==
LOC: JASU-ENDO 04:32
PROVIDERS: ATTEND Student in an Organized Health Care Education/Training Program
PROC: 0DB78ZX Excision of Stomach, Pylorus, Via Natural or Artificial Opening Endoscopic, Diagnostic (ICD-10-PCS; 2023-10-31)
PROC: 0DB68ZX Excision of Stomach, Via Natural or Artificial Opening Endoscopic, Diagnostic (ICD-10-PCS; 2023-10-31)
PROC: 0DB48ZX Excision of Esophagogastric Junction, Via Natural or Artificial Opening Endoscopic, Diagnostic (ICD-10-PCS; principal; 2023-10-31 08:00)
DX: K22.2 Esophageal obstruction (principal); K44.9 Diaphragmatic hernia without obstruction or gangrene; K29.70 Gastritis, unspecified, without bleeding; I10 Essential (primary) hypertension
CPT/HCPCS: 88305-TC; 88342-TC